=== PATIENT | female | born 1985 | race American Indian/Alaskan Native ===

== ENCOUNTER 2017-03-10 11:51 | Outpatient (CLI) | payer OTHER ==
[2017-03-10 12:28] LABS: Anion Gap 19 mmol/L; BUN/Creatinine Ratio 13.33; Blood Urea Nitrogen 16 mg/dL (7-17); Carbon Dioxide 23 mmol/L (22-30); Chloride 104.4 mmol/L (98-107); Glucose 84 mg/dL (65-100); Potassium 4.2 mmol/L (3.6-5.0); Sodium 142 mmol/L (137-145)
== END 2017-03-10 11:52 | disposition home or self-care (01) ==
LOC: LAB 11:51
PROVIDERS: ATTEND Specialist
DX: G43.711 Chronic migraine without aura, intractable, with status migrainosus (principal)
CPT/HCPCS: 36415; 80048